=== PATIENT | female | born 1985 | race Caucasian/White ===

== ENCOUNTER 2017-04-21 05:10 | Inpatient (IN) | payer BC ==
--- NOTE | 2017-04-20 15:53 | PCM.LDHP ---
L&D History of Present Illness - General Date of Service: 04/21/17 Admit Problem/Dx: Admission Diagnosis/Problem Admission Diagnosis/Problem 04/20/17 16:08 Source of Information: Patient, Other History Limitations: Reports: No Limitations - History of Present Illness Introduction:: History of present illness: Patient is a 31-year-old 2 para 1001 white female here for repeat . Has a history of spherocytosis and gestational diabetes mellitus. GBS positive. 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 Last menstrual period definite on 07/20/17. Menarche age 12. Menses occur monthly every 28-32 days. Positive hCG on 08/18/16. Was not on control at conception. First resulted in a 7 lbs 7 oz boy named Jeniffer born via after 7 hours of labor at 40 weeks gestation on 10/31/12. Cord was wrapped around baby's neck. course: ALICIA 04/26/17 based on LMP of 07/20/17. First-trimester ultrasound showed viable SIUG with size equaling dates. 20-week ultrasound showed no abnormalities. Gestational diabetes controlled with diet and Glyburide. Fundal height growth has been appropriate. Diagnosed with spherocytosis during , which has been followed with hematology and monitored by CBCs. Received TDAP 02/07/17. Has had weekly reactive NSTs. Pre- weight was 147 lbs and current weight is 178, a gain of 31 lbs. Laboratory testing: O positive blood type with negative antibody screen. First trimester HGB at 11.5 and platelets at 258,000. Rubella immune and RPR nonreactive. Hepatitis B surface antigen and HIV testing negative. Chlamydia and gonorrhea both negative. Second trimester HGB at 10.8 and platelets at 251, 000. One hour GTT 132. Third trimester HGB at 11.7 and platelets at 247,000. Group B strep positive. EPDS Past medical history: 1. Spherocytosis 2. Gestational diabetes mellitus 3. Fibrocystic changes in breast Past surgical history: 1. Appendectomy 2. Achilles tendon 3. 4. Pap biopsy Allergies: 1. No known food or drug allergies Medications: 1. Glyburide 2.5 mg twice a day (GDM) 2. vitamins 3. Iron tablets Family history: Mother's family has spherocytosis. Mother alive and well, has anemia. Father alive and well, has gout. MGM from old age and had history of colon cancer. MGF alive and had prostate cancer 15 years ago. PGM and PGF from age related issues. Has three sisters and one brother alive and well. Social history: Lives in [place], [place]. to Bryan Forde. No alcohol, tobacco, or illicit drug use during . Review of systems: Skin: no rashes HEENT and back: no back or neck pain Respiratory: no shortness of breath or cough Cardiovascular: no chest pain Breasts: normal changes Abdomen: no pain Extremities: no swelling Physical exam: well-appearing, well-nourished, no acute distress Last clinic appt. BP 128/72, FHR 137 Skin: warm, dry, intact HEENT and back: no pain or tenderness to palpation Respiratory: clear to auscultation bilaterally Cardiovascular: normal S1 and S2, no murmurs, regular rate and rhythm Breasts: deferred Abdomen: protuberant with , no tenderness, fundal height 39 cm Extremities: no edema H&P Review of Systems - Review of Systems: Review Of Systems: See Below L&D Exam - Exam Exam: See Below - Problem List (1) 39 weeks gestation of SNOMED Code(s): 43477591 ICD Code: Z3A.39 - 39 WEEKS GESTATION OF Status: Acute Problem List Initiated/Reviewed/Updated: Yes Assessment/Plan Comment:: Assessment: 1. 31-year-old at 39 2/7 weeks gestation here for repeat 2. Gestational diabetes mellitus controlled with Glyburide and diet 3. Spherocytosis monitored by hematology and CBCs 4. GBS positive 5. Risks and benefits of procedure were discussed with patient including anesthesia, bleeding, blood clots, injury, infection, other. The patient understands the alternative of and wishes to proceed with repeat . Plan: 1. Repeat 2. Ancef 2 g IV 60 minutes before procedure 3. SCD's before surgery 4. Maintain IV Lactated Ringers with 20 units Pitocin bolus in PACU until C- section patient is transferred to OR.
[~2017-04-21 05:10] MED LIST: Citric Acid/Sodium Citrate Solution 30 ML Cup PO SCH; Metoclopramide 10 MG/2 ML SDV IVPUSH SCH; Sodium Chloride 0.9% 10 ML Syringe FLUSH PRN
[2017-04-21] MEDS ORDERED: ceFAZolin 2 GM in Premix Bag 1 BAG IV SCH (05:30)
[2017-04-21] MEDS: Lactated Ringers 1,000 ML IV SCH ×2 (05:50→06:30)
[2017-04-21] MEDS ORDERED: Bupivacaine 0.5% 30 ML SDV ONE (06:23)
[2017-04-21] MEDS ORDERED: ceFAZolin 1 GM Vial ONE (06:51)
[2017-04-21] MEDS ORDERED: Phenylephrine 1% 10 MG/ML SDV ONE (06:51)
[2017-04-21] MEDS ORDERED: Ketorolac 30 MG/ML SDV ONE (06:51)
[2017-04-21] MEDS ORDERED: Ondansetron 4 MG/2 ML SDV ONE (06:51)
[2017-04-21] MEDS ORDERED: Morphine PF 10 MG/10 ML SDV ONE (06:51)
[2017-04-21] MEDS ORDERED: Oxytocin 10 Units/1 ML SDV ONE (06:51)
[2017-04-21] MEDS ORDERED: FLU Vacc QS 2017-18 (6mos UP)/PF 60 MCG/0.5 ML Syringe IM ONE (07:00)
--- NOTE | 2017-04-21 07:00 | PCM.PREANE ---
Preanesthetic Assessment - Anesthesia/Transfusion/Family Hx Anesthesia History: Prior Anesthesia Without Reaction Transfusion History: No Prior Transfusion(s) Intubation History: Unknown - Review of Systems General: No Symptoms Pulmonary: No Symptoms Cardiovascular: No Symptoms Gastrointestinal: No Symptoms (GERD) Neurological: No Symptoms, Tingling (Bilateral CTS) Other: Reports: None (Spherocytosis), Diabetes (am BS=73) - Physical Assessment NPO Status Date: 04/20/17 NPO Status Time: 19:30 Pulse: 79 O2 Sat by Pulse Oximetry: 100 Respiratory Rate: 18 Blood Pressure: 117/94 Temperature: 36.6 C Vital Signs: Last Vital Signs Temp 36.6 C 04/21/17 06:00 Pulse 79 04/21/17 06:00 Resp 18 04/21/17 06:00 BP 117/94 H 04/21/17 06:00 Pulse Ox 100 04/21/17 06:00 Height: 1.63 m Weight: 81.556 kg ASA Class: 2 Mental Status: Alert & Oriented x3 Airway Class: Mallampati = 2 Dentition: Reports: Normal Dentition, Caries Thyro-Mental Finger Breadths: 3 Mouth Opening Finger Breadths: 3 ROM/Head Extension: Full Lungs: Clear to Auscultation, Normal Respiratory Effort Cardiovascular: Regular Rate, Regular Rhythm, No Murmurs - Lab Values: Laboratory Last Values POC Glucose 73 mg/dL (70-105) 04/21/17 06:22 Platelets= 238,000 - Allergies Allergies/Adverse Reactions: Allergies Allergy/AdvReac Type Severity Reaction Status Date / Time No Known Allergies Allergy Verified 04/21/17 06:26 - Anesthesia Plan Pre-Op Medication Ordered: None - Acknowledgements Anesthesia Type Planned: Spinal Pt an Appropriate Candidate for the Planned Anesthesia: Yes Alternatives and Risks of Anesthesia Discussed w Pt/Guardian: Yes Pt/Guardian Understands and Agrees with Anesthesia Plan: Yes 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: Endocrine/Metabolic History: Reports: Diabetes, Gestational Hematologic History: Reports: Other (See Below) Other Hematologic History: spherocytosis - Past Surgical History GI Surgical History: Reports: Appendectomy Female Surgical History: Reports: Section Musculoskeletal Surgical History: Reports: Other (See Below) Other Musculoskeletal Surgeries/Procedures:: achilles tendon repair - SUBSTANCE USE Smoking Status *Q: Former Smoker Tobacco Use Within Last Twelve Months: No Recreational Drug Use History: No - HOME MEDS Home Medications: Home Meds Ferrous Sulfate [Iron] 1 tab PO DAILY 04/21/17 [History] Vits #93/Iron Fum/FA [ Formula Tablet] 1 each PO DAILY [History] glyBURIDE/Metformin HCl [Glyburid-Metformin 1.25-250 mg] 2.5 mg PO BID 04/21/17 [History] - CURRENT (IN HOUSE) MEDS Current Meds: Current Medications Citric Acid/Sodium Citrate (Bicitra Solution) 30 ml PO .ONETIME KIRSTIN Cefazolin Sodium/Dextrose 2 gm (/ Premix) 50 mls @ 100 mls/hr IV .ONETIME KIRSTIN Lactated Ringer's (Ringers, Lactated) 1,000 mls @ 125 mls/hr IV ASDIRECTED KIRSTIN Oxytocin 20 unit/ Lactated (Ringer's) 1,002 mls @ 500 mls/hr IV TITRATE KIRSTIN Metoclopramide HCl (Reglan) 10 mg IVPUSH .ONETIME KIRSTIN Sodium Chloride (Saline Flush) 10 ml FLUSH ASDIRECTED PRN PRN Reason: Keep Vein Open Discontinued Medications Bupivacaine HCl (Marcaine 0.5%) Confirm Administered Dose 30 ml .ROUTE .STK-MED ONE Stop: 04/21/17 06:24 Cefazolin Sodium (Ancef) Confirm Administered Dose 2 gm .ROUTE .STK-MED ONE Stop: 04/21/17 06:52 Ketorolac Tromethamine (Toradol) Confirm Administered Dose 30 mg .ROUTE .STK- MED ONE Stop: 04/21/17 06:52 Morphine Sulfate (Duramorph Pf) Confirm Administered Dose 10 mg .ROUTE .STK-MED ONE Stop: 04/21/17 06:52 Ondansetron HCl (Zofran) Confirm Administered Dose 4 mg .ROUTE .STK-MED ONE Stop: 04/21/17 06:52 Oxytocin (Pitocin) Confirm Administered Dose 10 unit .ROUTE .STK-MED ONE Stop: 04/21/17 06:52 Phenylephrine HCl (Hoang-Synephrine) Confirm Administered Dose 10 mg .ROUTE .STK- MED ONE Stop: 04/21/17 06:52
[2017-04-21] MEDS ORDERED: Lidocaine 1% 2 ML ONE ×2 (08:00)
[2017-04-21] MEDS ORDERED: Meperidine PF 50 MG/ML Syringe IVPUSH PRN (08:01)
[2017-04-21] MEDS ORDERED: HYDROmorphone 0.5 MG/0.5 ML Syringe IVPUSH PRN (08:01)
[2017-04-21] MEDS ORDERED: diphenhydrAMINE 50 MG/ML SDV IVPUSH PRN ×2 (08:01→09:07)
[2017-04-21] MEDS ORDERED: Ondansetron 4 MG/2 ML SDV IVPUSH PRN (08:01)
[2017-04-21] MEDS ORDERED: fentaNYL 100 MCG/2 ML SDV IVPUSH PRN (08:01)
[2017-04-21] MEDS ORDERED: Phenylephrine 1 MG in Sodium Chloride 0.9% 10 ML IV SCH (08:15)
--- NOTE | 2017-04-21 08:32 | PCM.POSTAN ---
POST ANESTHESIA ASSESSMENT - MENTAL STATUS Mental Status: Alert - VITAL SIGNS Pulse Rate: 79 SaO2: 100 Resp Rate: 19 Blood Pressure: 105/73 Temperature: 36.4 C - RESPIRATORY Respiratory Status: Respiratory Rate WNL, Airway Patent, O2 Saturation Stable - CARDIOVASCULAR CV Status: Pulse Rate WNL, Blood Pressure Stable - GASTROINTESTINAL GI Status: No Symptoms - POST OP HYDRATION Hydration Status: Adequate & Stable
--- NOTE | 2017-04-21 08:34 | PCM.OPNOTE ---
- General Post-Op/Procedure Note Date of Surgery/Procedure: 04/21/17 Operative Procedure(s): repeat lower uterine segment transverse section through Pfannenstiel skin incision Findings: baby is vertex presentation. There was moderate scarring in the subcutaneous area. Patient's amniotic fluid was clear. Her uterine segment was approximately 2-3 mm thick. Uterus tubes and ovaries otherwise were consistent with a normal term . Pre Op Diagnosis: term intrauterine , history of previous section, history of gestational diabetes, desire for repeat section Post-Op Diagnosis: same with delivery of a viable, tolentino, female infant with Apgars of 9 and 9 and a weight 8 lbs. 3 oz. at 0759 hrs. on 04/21/2017. Anesthesia Technique: Spinal Other Anesthesia Type: Marcaine 0.5%20 mL locally Primary Surgeon: Lev Caballero Secondary Surgeon: Jayro Diehl Anesthesia Provider: Caroline Flaherty Open Hearth Melter: Osorio Escobedo Open Hearth Melter: Kaci Barney Output, Urine Amount: 1,100 (Crystalloid) EBL in mLs: 500 Drain/Tube Comments:: indwelling bladder catheter Complications: None Condition: Good Free Text/Narrative:: surgery duration: 20 minutes Procedure: Patient was transferred the room and placed in a sitting position. After confirmation of adequate anesthesia patient was placed in a supine position with a wedge under her right side to facilitate left lateral positioning. The patient was prepped and draped in usual fashion after Perkins catheter was already placed . The anesthetic was checked and found to be adequate. The Pfannenstiel skin incision was then made carried down to skin subcutaneous and fascial layers. The fascia was then undermined superiorly and inferiorly to allow for adequate operating room the recti muscles midline and preperitoneal fat was bluntly dissected. Peritoneal cavity was entered longitudinally. The vesicouterine peritoneum was then incised transversely and bladder flap was developed. Myometrium was incised transversely to the level of the amniotic sac. This incision was extended bilaterally in a blunt fashion. The amniotic sac was then ruptured resulting clear amniotic fluid. A hand is placed in the low uterine segment and the baby' s head was brought forth through the incision. The baby was completely delivered using fundal pressure in a routine fashion. The nose and mouth were bulb suctioned. Baby's cord was clamped x2 cut and baby was handed off to attending roof designer Dr Fermin. Placenta was expressed after cord blood was obtained. Uterus was then exteriorized to allow for easier closure. The cervix was assessed and found to be dilated adequately to allow egress of blood. The uterus was closed in 2 layers. The first layer a running locked suture of 0 Monocryl, the second layer a running locked vertical mattress suture of 0 Monocryl. [id number] suture was placed at the left incision to control 1 bleeder. Hemostasis confirmed at this time. Sponge instrument needle counts are correct. The uterus was returned to the abdominal cavity and lateral gutters were cleared of blood. Once again sponge needle counts are correct. The anterior abdominal wall was closed with a #1 PDS suture from angle to angle. The subcutaneous area was found to be free of any bleeders. Skin was closed with a running subcuticular stitch of 3-0 Monocryl in a vertical mattress suture fashion using a Lance needle. Prineo mesh/glue was then applied to further approximate the incision. It should be noted that patient received 2 g of Ancef preoperatively for infection prophylaxis and had Pitocin infused after delivery of the placenta to facilitate uterine contraction. She also had sequential compression stockings in place for DVT prophylaxis. Patient was discharged from the operating room in satisfactory condition.
[2017-04-21] MEDS ORDERED: Dextrose 5%-Lactated Ringers 1,000 ML IV SCH (09:07)
[2017-04-21] MEDS ORDERED: Ondansetron 4 MG/2 ML SDV IV PRN (09:07)
[2017-04-21] MEDS ORDERED: Docusate Sodium 100 MG Cap PO PRN (09:07)
[2017-04-21] MEDS ORDERED: Naloxone 0.4 MG/ML SDV IVPUSH PRN (09:07)
[2017-04-21] MEDS ORDERED: Lanolin 100% Cream 7 GM Tube TOP PRN (09:07)
[2017-04-21] MEDS ORDERED: ePHEDrine 50 MG/ML SDV IVPUSH PRN (09:07)
[2017-04-21] MEDS: Prenatal Multivitamin with Calcium/Folic Acid/Iron Tab PO SCH (09:40)
[2017-04-21] MEDS: Simethicone 80 MG Tab.Chew PO SCH ×4 (09:40→22:55)
[2017-04-21] MEDS: Acetaminophen/oxyCODONE 325-5 MG Tab PO PRN ×2 (13:44→20:30)
[2017-04-21] MEDS: Ibuprofen 600 MG Tab PO PRN ×2 (16:07→22:58)
[2017-04-22] MEDS: Acetaminophen/oxyCODONE 325-5 MG Tab PO PRN ×5 (00:32→20:38)
[2017-04-22] MEDS: Ibuprofen 600 MG Tab PO PRN ×2 (09:34→18:25)
[2017-04-22] MEDS: Prenatal Multivitamin with Calcium/Folic Acid/Iron Tab PO SCH (09:34)
[2017-04-22] MEDS: Simethicone 80 MG Tab.Chew PO SCH ×4 (09:34→21:30)
--- NOTE | 2017-04-22 10:13 | PCM.SN ---
- Free Text/Narrative Note: The patient is a 31-year-old 2 now para 2002 white female who is on postoperative day 1. She is doing very well. Pain is well-controlled with ibuprofen and Percocet. Her lochia is minimal. She is ambulating well. She is voiding without concerns. Nursing is going well also. Her vital signs are stable. Patient is afebrile. Lungs are clear with good breath sounds in all lung wilder. Cardiovascular exam shows regular and rhythm without murmurs. Abdomen is flat, soft, nontender, uterus at umbilicus -3 cm, firm. Nontender. Incision appears to intact without evidence of seroma, hematoma or abscess. Extremities show no significant edema. Hemoglobin is 10.8, hematocrit 31.2, white blood count is 12.09, platelets are 217,000. Assessment/plan: Postoperative day one-normal recovery. Plan increase in diet, activity and discontinue SCDs, IV and input and output.
[2017-04-23] MEDS: Acetaminophen/oxyCODONE 325-5 MG Tab PO PRN ×3 (02:40→11:11)
[2017-04-23] MEDS: Ibuprofen 600 MG Tab PO PRN (04:55)
[2017-04-23] MEDS: Prenatal Multivitamin with Calcium/Folic Acid/Iron Tab PO SCH (08:25)
[2017-04-23] MEDS: Simethicone 80 MG Tab.Chew PO SCH (08:25)
--- NOTE | 2017-04-23 08:38 | PCM48HPAN ---
Post Anesthesia Note - EVALUATION WITHIN 48HRS OF ANESTHETIC Vital Signs in Normal Range: Yes Patient Participated in Evaluation: Yes Respiratory Function Stable: Yes Airway Patent: Yes Cardiovascular Function Stable: Yes Hydration Status Stable: Yes Pain Control Satisfactory: Yes Nausea and Vomiting Control Satisfactory: Yes Mental Status Recovered: Yes
--- NOTE | 2017-04-23 09:21 | PCM.DCSUM1 ---
Discharge Summary - Hospital Course Free Text/Narrative:: 39 week intrauterine , history of previous section with desire for repeat section. Patient is admitted for repeat on 04/21/2017. Please see admission history and physical. section was performed and resulted in a delivery of a 8 lbs. 3 oz. female infant with Apgars of 9 and 9 at 0759 hrs. on 04/21/2017. patient was done well. She Gavin well, nursing without problems and has minimal lochia. Her follow-up CBC is within normal limits for period. Patient is desiring to go home. - Discharge Data Discharge Date: 04/23/17 Discharge Disposition: Home, Self-Care 01 Condition: Good - Patient Summary/Data Operative Procedure(s) Performed: repeat lower uterine segment transverse section through Pfannenstiel skin incision - Patient Instructions Diet: Regular Diet as Tolerated (Nursing diet was increased calcium and calories as directed.) Activity: As Tolerated (No lifting greater than 15 pounds or driving a car 1 week. No intercourse or tampons until bleeding resolves.) Driving: Do Not Drive Wound/Incision Care: Keep Operative Site/Wound Site Clean and Dry Notify Provider of: Fever, Increased Pain, Swelling and Redness, Drainage, Nausea and/or Vomiting - Discharge Plan Home Medications: Home Meds Ferrous Sulfate [Iron] 1 tab PO DAILY 04/21/17 [History] Vits #93/Iron Fum/FA [ Formula Tablet] 1 each PO DAILY [History] glyBURIDE/Metformin HCl [Glyburid-Metformin 1.25-250 mg] 2.5 mg PO BID 04/21/17 [History] Acetaminophen/oxyCODONE [Percocet 325-5 MG] 2 tab PO Q4H PRN #30 tablet [Rx] Ibuprofen [IJD: Ibuprofen] 600 mg PO Q6H PRN #30 tablet 04/23/17 [Rx] Referrals: Lev Caballero MD [Primary Care Provider] - (Return to clinic-Dr. Caballero-[facility]-2 weeks.) - Discharge Summary/Plan Comment DC Time >30 min.: No Discharge Summary/Plan Comment: Discharge instructions: 1. Discharge home 2. Regular, high fiber, nursing diet with increased calcium and calories as directed 3. Activity and follow-up discussed in detail with patient. 4. Precautions given concern increased pain, bleeding, temperature, signs/ symptoms of DVT/PE 5. Educations per home medication was printed, discussed with him given to the patient 6. Return to clinic-Dr. Caballero-[facility] -[place] -2 weeks. Diagnosis: 39 week intrauterine -delivered by repeat section. Condition: Good - Patient Data Vitals - Most Recent: Last Vital Signs Temp 36.7 C 04/23/17 04:00 Pulse 78 04/23/17 04:50 Resp 18 04/23/17 04:00 BP 114/63 04/23/17 04:50 Pulse Ox 98 04/23/17 04:50 Weight - Most Recent: 81.556 kg I&O - Last 24 hours: Intake & Output 04/22/17 04/23/17 04/23/17 22:59 06:59 14:59 Intake Total 0 Balance 0 Med Orders - Current: Current Medications Diphenhydramine HCl (Benadryl) 25 mg IVPUSH Q6H PRN PRN Reason: Itching or Nausea Docusate Sodium (Colace) 100 mg PO Q12H PRN PRN Reason: Constipation Last Admin: 04/22/17 21:05 Dose: 100 mg Emollient Ointment (Lansinoh Hpa) 0 gm TOP ASDIRECTED PRN PRN Reason: Sore Nipples Ephedrine Sulfate (Ephedrine Sulfate) 5 mg IVPUSH SEECOMMENT PRN PRN Reason: Other Ibuprofen (Motrin) 600 mg PO Q6H PRN PRN Reason: mild pain or fever Last Admin: 04/23/17 04:55 Dose: 600 mg Naloxone HCl (Narcan) 0.1 mg IVPUSH SEECOMMENT PRN PRN Reason: Respiratory Depression Ondansetron HCl (Zofran) 4 mg IV Q4H PRN PRN Reason: Nausea/Vomiting Oxycodone/Acetaminophen (Percocet 325-5 Mg) 2 tab PO Q4H PRN PRN Reason: Pain (moderate 4-6) Last Admin: 04/23/17 07:01 Dose: 2 tab Prenat Multivit/Automotive Tire Technician/Iron/Folic Ac ( Plus Iron) 1 each PO DAILY KIRSTIN Last Admin: 04/23/17 08:25 Dose: 1 each Simethicone (Simethicone) 80 mg PO PCBED [facility] Last Admin: 04/23/17 08:25 Dose: 80 mg Discontinued Medications Bupivacaine HCl (Marcaine 0.5%) Confirm Administered Dose 30 ml .ROUTE .[facility] ONE Stop: 04/21/17 06:24 Last Admin: 04/21/17 07:55 Dose: 20 ml Cefazolin Sodium (Ancef) Confirm Administered Dose 2 gm .ROUTE .[facility] ONE Stop: 04/21/17 06:52 Citric Acid/Sodium Citrate (Bicitra Solution) 30 ml PO .ONETIME [facility] Last Admin: 04/21/17 07:00 Dose: 30 ml Diphenhydramine HCl (Benadryl) 25 mg IVPUSH Q6H PRN PRN Reason: pruritis Stop: 04/21/17 10:00 Fentanyl (Sublimaze) 50 mcg IVPUSH Q5M PRN PRN Reason: Pain Stop: 04/21/17 10:00 Hydromorphone HCl (Dilaudid) 0.5 mg IVPUSH Q15M PRN PRN Reason: severe pain Stop: 04/21/17 10:00 Cefazolin Sodium/Dextrose 2 gm (/ Premix) 50 mls @ 100 mls/hr IV .ONETIME [facility] Lactated Ringer's (Ringers, Lactated) 1,000 mls @ 125 mls/hr IV ASDIRECTED [facility] Last Admin: 04/21/17 06:30 Dose: 999 mls/hr Oxytocin 20 unit/ Lactated (Ringer's) 1,002 mls @ 500 mls/hr IV TITRATE [facility] Lidocaine HCl (Xylocaine-Mpf 1%) Confirm Administered Dose 2 mls @ as directed .ROUTE .[facility] ONE Stop: 04/21/17 08:01 Lidocaine HCl (Xylocaine-Mpf 1%) Confirm Administered Dose 2 mls @ as directed .ROUTE .[facility] ONE Stop: 04/21/17 08:01 Phenylephrine HCl 1 mg/ Sodium (Chloride) 10.1 mls @ 1 mls/sec IV TITRATE [facility] PRN Reason: Protocol Stop: 04/21/17 10:00 Dextrose/Lactated Ringer's (Dextrose 5%-Lactated Ringers) 1,000 mls @ 125 mls/ hr IV ASDIRECTED [facility] Stop: 04/21/17 17:06 Last Admin: 04/21/17 12:09 Dose: 125 mls/hr Ketorolac Tromethamine (Toradol) Confirm Administered Dose 30 mg .ROUTE .STK- MED ONE Stop: 04/21/17 06:52 Meperidine HCl (Demerol) 12.5 mg IVPUSH ONETIME PRN PRN Reason: shivering Stop: 04/21/17 10:00 Last Admin: 04/21/17 08:33 Dose: 12.5 mg Metoclopramide HCl (Reglan) 10 mg IVPUSH .ONETIME KIRSTIN Last Admin: 04/21/17 06:50 Dose: 10 mg Morphine Sulfate (Duramorph Pf) Confirm Administered Dose 10 mg .ROUTE .STK-MED ONE Stop: 04/21/17 06:52 Ondansetron HCl (Zofran) Confirm Administered Dose 4 mg .ROUTE .STK-MED ONE Stop: 04/21/17 06:52 Ondansetron HCl (Zofran) 4 mg IVPUSH ONETIME PRN PRN Reason: Nausea/Vomiting Stop: 04/21/17 10:00 Oxytocin (Pitocin) Confirm Administered Dose 10 unit .ROUTE .STK-MED ONE Stop: 04/21/17 06:52 Phenylephrine HCl (Hoang-Synephrine) Confirm Administered Dose 10 mg .ROUTE .STK- MED ONE Stop: 04/21/17 06:52 Sodium Chloride (Saline Flush) 10 ml FLUSH ASDIRECTED PRN PRN Reason: Keep Vein Open *Q Meaningful Use (DIS) - VTE *Q VTE Criteria *Q: - Stroke *Q Stroke Criteria *Q: - AMI *Q AMI Criteria *Q:
[2017-04-23 11:34] VITALS: BP 116/60
== END 2017-04-23 11:15 | disposition home or self-care (01) | DRG 540 ==
LOC: JD.OB 05:10
PROVIDERS: ADMIT Obstetrics & Gynecology; ATTEND Obstetrics & Gynecology
PROC: 10D00Z1 Extraction of Products of Conception, Low, Open Approach (ICD-10-PCS; principal; 2017-04-21)
DX: O24.425 Gestational diabetes mellitus in childbirth, controlled by oral hypoglycemic drugs (principal); Z3A.39 39 weeks gestation of pregnancy; Z37.0 Single live birth; O75.89 Other specified complications of labor and delivery; D58.0 Hereditary spherocytosis; O99.824 Streptococcus B carrier state complicating childbirth; O34.211 Maternal care for low transverse scar from previous cesarean delivery; N85.8 Other specified noninflammatory disorders of uterus
CPT/HCPCS: 01961; 36415; 82962; 85025; 90471; 90686; A9270-GY; J0690; J1885; J2175; J2270; J2370; J2405; J2590; J2765; J7042; J7120

== ENCOUNTER 2019-12-20 05:33 | Inpatient (IN) | payer BC ==
--- NOTE | 2019-12-17 13:50 | PCM.LDHP ---
L&D History of Present Illness - General Date of Service: 12/17/19 Admit Problem/Dx: Admission Diagnosis/Problem Admission Diagnosis/Problem 12/17/19 13:39 Naomy is a 34-year-old 3 para 2001 white female who will be admitted on 12/20/2019 at 39-1/7 weeks gestational age with an ALICIA of 12/26/2019 for elective repeat section. Source of Information: Patient History Limitations: Reports: No Limitations - History of Present Illness Introduction:: Naomy is a 34-year-old 3 para 2001 white female who will be admitted on 12/20/2019 at 39-1/7 weeks gestational age with an ALICIA of 12/26/2019 for elective repeat section.The procedure, risks, benefits, alternatives of care and follow-up are all discussed in detail with the patient. She appears to understand, has signed a consent and wishes to proceed. BENCH EXAMINER history: Naomy is a 3 para 2001 female. She has an ALICIA of is based upon an early ultrasound done at 10 and 57 weeks gestational age and supported by a second ultrasound done on 07/31/2019. She has had a previous section 2 done for nonreassuring heart tones and an elective repeat with the second one. Patient had menarche at age 12. Cycles every month.'s duration 5-7 days. She is not using any control at the time conception. LMP was 03/15/2019. Obstetric history includes the followin. Male infant born 10/31/2012 at 40 weeks gestational age after 7 hours of labor. 7 lbs. 7 oz. delivered by for nonreassuring heart tones. Had an epidural for analgesia/anesthesia. She delivered a [facility] I Kylee. Child 's name is Jeniffer. 2. Female infant born 04/21/2017 at 39 weeks gestational age. This is elective repeat section delivery of an 8 lbs. 7 oz. baby. Spinal anesthetic for analgesia anesthesia. She delivered at [facility] in [place]. Child's name is Luz Marina. course: Patient was seen for her first visit on 06/04/2019 at 10-5/7 weeks gestational age. She is seen on a very regular basis throughout the course of . Her weight increased from 150.2-171.6 pounds. Her vital signs remained stable throughout the course and her fundal height growth was appropriate. Patient had Screen which was negative. She had a 1 hour GTT which is elevated and a 3 or GTT which was normal. She did however do blood sugars throughout the and these remain normal with dietary control. Her [place] depression screening score on 08/08/2019 was 6/ 30. The patient plans to pump breast milk and bottle feed. She has a previous history of gestational diabetes with last 2 pregnancies. Naomy had her flu shot on 04/30/2019. Her Tdap was given on 10/02/2019. She is rubella immune. Hepatitis B vaccinations done on November 1998. TD given 06/19/1998 laboratory testing: Let is O+ with a negative and right screen. First hemoglobin was 12.6 g/dL and platelets were 306,000. She is rubella immune. RPR is nonreactive. Urine culture is negative. Hepatitis B surface antigen was negative. HIV assay was negative. Chlamydia and gonorrhea tests were both negative. Second trimester labs showed a hemoglobin that was low at 10.8 g/dL. Her platelets are 253,000. Her 1 hour GTT was 147. Her 3 hour glucose tolerance test was normal with the following values: Fasting blood sugar 81, 1 hour blood sugar 158, 2 hour blood sugar 81, 3 hour blood sugar 56. RPR done on 09/19/2019 was nonreactive. Group B strep screen was negative. Allergies: None Medications: 1. vitamins 1 daily 2. Ferrous sulfate 325 mg by mouth daily 3. Calcium tablets 600 mg per day 4. Omeprazole 20 mg delayed release disintegrating tablet used when necessary for nausea Past medical history: 1. Spherocytosiscongenital 2. Abnormal Pap smear 12 years agonormal since 3. History of gestational diabetes with first 2 pregnancies 4. Bacterial pneumonia February 2019 Past surgical history: 1. 2 2. Appendectomy 1997 3. Achilles tendon repair in 1991 Family history: Mother's family is spherocytosis. One son age for alive and well. 3 sisters ages 36, 33 and 23 alive and well. One brother age 39 alive and well. Mother age 66 alive and well with the exception of anemia. Father age 60 alive and well with the exception of gout history. Maternal grandmother at age 82 with age related problems and prior history of colon cancer. Maternal grandfather age 92 alive and with history of prostate cancer 15 years ago otherwise well. Paternal grandmother at age 97 from age-related issues. Paternal grandfather at age 97 from age-related issues. Mother with diagnosis of breast cancer now in remission. Social history: Patient is . 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 She is a college graduate. She lives in [facility] with her [place]. She does not use any significant most alcohol, drugs or tobacco. Review of systems: In general patient has no complaints. AB has been active. No concerns expressed. Skin: Negative Lungs: No infectious symptoms or shortness of breath Cardiovascular: No chest pain or exercise intolerance Breasts: No lumps, changes in size, pain, dimpling, discharge or axillary or supraclavicular concerns. GI: Negative : Changes associated with . Musculoskeletal: Negative Neurological: Negative In general the patient is well-developed, well-nourished, pleasant female of stated age in no acute distress. On last evaluation in clinic on 12/17/2019 blood pressure is 125/70. Weight was 171.6 with pregravid weight of 150.2 pounds. Height is 5 feet 4 inches. Pregravid body mass index is 25.4. heart rate was 135 bpm. Skin is warm dry without lesions. HEENT, neck and back within normal limits. Lungs are clear with good breath sounds in all lung wilder. Cardiovascular exam shows regular and rhythm without murmurs. Breast exam deferred as it was normal at first visit Abdomen is gravid with fundal height of 38.5 cm. Baby in vertex presentation.. Genital deferred per patient request. Extremities and neurological exam are grossly within normal limits. - Related Data Allergies/Adverse Reactions: Allergies Allergy/AdvReac Type Severity Reaction Status Date / Time No Known Allergies Allergy Verified 04/21/17 06:26 Home Medications: Home Meds Ferrous Sulfate [Iron] 1 tab PO DAILY 04/21/17 [History] Vits #93/Iron Fum/FA [ Formula Tablet] 1 each PO DAILY [History] glyBURIDE/Metformin HCl [Glyburid-Metformin 1.25-250 mg] 2.5 mg PO BID 04/21/17 [History] Acetaminophen/oxyCODONE [Percocet 325-5 MG] 2 tab PO Q4H PRN #30 tablet [Rx] Ibuprofen [IJD: Ibuprofen] 600 mg PO Q6H PRN #30 tablet 04/23/17 [Rx] Past Medical History BENCH EXAMINER History: Reports: Endocrine/Metabolic History: Reports: Diabetes, Gestational Hematologic History: Reports: Other (See Below) Other Hematologic History: spherocytosis - Past Surgical History GI Surgical History: Reports: Appendectomy Female Surgical History: Reports: Section Musculoskeletal Surgical History: Reports: Other (See Below) Other Musculoskeletal Surgeries/Procedures:: achilles tendon repair Social & Family History - Caffeine Use Caffeine Use: Reports: Coffee H&P Review of Systems - Review of Systems: Review Of Systems: See Below L&D Exam - Exam Exam: See Below Problem List Initiated/Reviewed/Updated: Yes Assessment/Plan Comment:: 1. 39-1/7 week intrauterine , history of previous section 2 with desire for repeat section. 2. Group B strep negative 3. Patient plans to Pump and bottle feed breast milk 4. Tdap and flu immunization given during 5. History of normal three-hour GTT but patient opted blood sugars throughout the and these have returned normal with dietary control. Plan: 1. Repeat lower uterine segment transverse section through Pfannenstiel skin incision under spinal block. Procedure is scheduled for 2019 at 0800 hrs. C2, risks, benefits, alternatives of care and follow-up were discussed in detail patient. She appears to understand, and signed consent and wishes to proceed. 2. DVT prophylaxis with SCDs 3. Infection prophylaxis with Ancef 2 g IV preop 4. Preoperative lab testing testing to consist of a CBC, urinalysis, type and screen, RPR.
[~2019-12-20 05:33] MED LIST changes: +Citric Acid/Sodium Citrate Solution 30 ML Cup PO ONE; -Citric Acid/Sodium Citrate Solution 30 ML Cup PO SCH; +Lactated Ringers 1,000 ML IV SCH; +Metoclopramide 10 MG/2 ML SDV IVPUSH ONE; -Metoclopramide 10 MG/2 ML SDV IVPUSH SCH; +Oxytocin/Lactated Ringers 20 UNIT/1,000 ML BAG IV SCH
[2019-12-20] MEDS: Lactated Ringers 1,000 ML IV SCH ×2 (05:56→06:30)
[2019-12-20] MEDS ORDERED: Citric Acid/Sodium Citrate Solution 30 ML Cup PO ONE (06:00)
[2019-12-20] MEDS ORDERED: Metoclopramide 10 MG/2 ML SDV IVPUSH ONE (06:00)
[2019-12-20] MEDS ORDERED: Oxytocin/Lactated Ringers 20 UNIT/1,000 ML BAG IV SCH (06:00)
[2019-12-20] MEDS ORDERED: Sodium Chloride 0.9% 10 ML Syringe FLUSH PRN ×2 (06:00→07:05)
[2019-12-20] MEDS ORDERED: ceFAZolin 2 GM in Premix Bag 1 BAG IV ONE (06:00)
[2019-12-20] MEDS ORDERED: Bupivacaine 0.5% 30 ML SDV ONE (07:02)
[2019-12-20] MEDS ORDERED: Ondansetron 4 MG/2 ML SDV IVPUSH PRN (07:05)
[2019-12-20] MEDS ORDERED: fentaNYL 100 MCG/2 ML SDV IVPUSH PRN (07:05)
[2019-12-20] MEDS ORDERED: diphenhydrAMINE 50 MG/ML SDV IVPUSH PRN ×2 (07:05→09:13)
[2019-12-20] MEDS ORDERED: Lidocaine 1%/Sod Bicarbonate in NS 8.4% 1 ML Syringe IDERM PRN (07:05)
[2019-12-20] MEDS ORDERED: Famotidine 20 MG/2 ML SDV IVPUSH ONE (07:05)
[2019-12-20] MEDS ORDERED: Oxytocin 10 Units/1 ML SDV ONE ×2 (07:09→08:27)
[2019-12-20] MEDS ORDERED: Morphine PF 1 MG/ML Amp ONE (07:10)
[2019-12-20] MEDS ORDERED: fentaNYL 100 MCG/2 ML SDV ONE (07:11)
[2019-12-20] MEDS ORDERED: Lactated Ringers 1,000 ML IV SCH (07:15)
[2019-12-20] MEDS ORDERED: ceFAZolin 1 GM Vial ONE (07:36)
[2019-12-20] MEDS ORDERED: Ketorolac 30 MG/ML SDV ONE (07:36)
--- NOTE | 2019-12-20 08:16 | PCM.PREANE ---
Preanesthetic Assessment - Procedure Proposed Procedure: Repeat - Anesthesia/Transfusion/Family Hx Anesthesia History: Prior Anesthesia Without Reaction Family History of Anesthesia Reaction: No Transfusion History: No Prior Transfusion(s) Intubation History: Unknown - Review of Systems General: No Symptoms Pulmonary: No Symptoms Cardiovascular: No Symptoms Gastrointestinal: No Symptoms Neurological: No Symptoms Other: Reports: None - Physical Assessment NPO Status Date: 12/19/19 NPO Status Time: 03:00 Vital Signs: Last Vital Signs Temp 36.4 C 12/20/19 05:48 Pulse 94 12/20/19 05:48 Resp 16 12/20/19 05:48 BP 121/77 12/20/19 05:48 Pulse Ox 99 12/20/19 05:48 Height: 5 ft 4 in Weight: 77.337 kg ASA Class: 1 Mental Status: Alert & Oriented x3 Airway Class: Mallampati = 1 Dentition: Reports: Normal Dentition Thyro-Mental Finger Breadths: 3 Mouth Opening Finger Breadths: 3 ROM/Head Extension: Full Lungs: Clear to Auscultation, Normal Respiratory Effort Cardiovascular: Regular Rate, Regular Rhythm - Lab Values: Laboratory Last Values WBC 13.17 K/mm3 (3.98-10.04) H 12/20/19 05:47 RBC 3.74 M/mm3 (3.98-5.22) L 12/20/19 05:47 Hgb 12.4 gm/dl (11.2-15.7) D 12/20/19 05:47 Hct 34.9 % (34.1-44.9) 12/20/19 05:47 MCV 93.3 fl (79.4-94.8) 12/20/19 05:47 MCH 33.2 pg (25.6-32.2) H 12/20/19 05:47 MCHC 35.5 g/dl (32.2-35.5) 12/20/19 05:47 RDW Std Deviation 54.4 fL (36.4-46.3) H 12/20/19 05:47 Plt Count 242 K/mm3 (182-369) 12/20/19 05:47 MPV 10.4 fl (9.4-12.3) 12/20/19 05:47 Neut % (Auto) 76.2 % (34.0-71.1) H 12/20/19 05:47 Lymph % (Auto) 12.6 % (19.3-51.7) L 12/20/19 05:47 [place] % (Auto) 5.3 % (4.7-12.5) 12/20/19 05:47 Eos % (Auto) 2.9 (0.7-5.8) 12/20/19 05:47 Baso % (Auto) 0.5 % (0.1-1.2) 12/20/19 05:47 Neut # (Auto) 10.03 K/mm3 (1.56-6.13) H 12/20/19 05:47 Lymph # (Auto) 1.66 K/mm3 (1.18-3.74) 12/20/19 05:47 [place] # (Auto) 0.70 K/mm3 (0.24-0.36) H 12/20/19 05:47 Eos # (Auto) 0.38 K/mm3 (0.04-0.36) H 12/20/19 05:47 Baso # (Auto) 0.07 K/mm3 (0.01-0.08) 12/20/19 05:47 Manual Slide Review Abnormal smear 12/20/19 05:47 - Allergies Allergies/Adverse Reactions: Allergies Allergy/AdvReac Type Severity Reaction Status Date / Time No Known Allergies Allergy Verified 12/18/19 10:04 - Blood Blood Available: Yes Product(s) Available: PRBC (No concerns at this time) - Anesthesia Plan Pre-Op Medication Ordered: Antacids - Acknowledgements Anesthesia Type Planned: Spinal, MAC Pt an Appropriate Candidate for the Planned Anesthesia: Yes Alternatives and Risks of Anesthesia Discussed w Pt/Guardian: Yes Pt/Guardian Understands and Agrees with Anesthesia Plan: Yes PreAnesthesia Questionnaire UNDERGRADUATE INTERN History: Reports: Other OB/BYN History: C/S x2 (2012,2016) Endocrine/Metabolic History: Reports: Diabetes, Gestational Hematologic History: Reports: Other (See Below) Other Hematologic History: spherocytosis Dermatologic History: Reports: Other (See Below) Other Dermatologic History: current sunburn to neck and arms - Past Surgical History GI Surgical History: Reports: Appendectomy Female Surgical History: Reports: Section Other Endocrine Surgeries/Procedures: Hx of Gestational DM with First 2 pregnancies. Current boarderline, but able to keep glucose WNL with diet and exercise. Musculoskeletal Surgical History: Reports: Other (See Below) Other Musculoskeletal Surgeries/Procedures:: achilles tendon repair - SUBSTANCE USE Smoking Status *Q: Never Smoker Second Hand Smoke Exposure: No Recreational Drug Use History: No - HOME MEDS Home Medications: Home Meds Ferrous Sulfate [Iron] 1 tab PO DAILY 04/21/17 [History] Vits #93/Iron Fum/FA [ Formula Tablet] 1 each PO DAILY [History] Calcium Carbonate [Calcium] 500 mg PO DAILY 12/18/19 [History] Folic Acid 1 mg PO 12/20/19 [History] - CURRENT (IN HOUSE) MEDS Current Meds: Current Medications Diphenhydramine HCl (Benadryl) 25 mg IVPUSH Q6H PRN PRN Reason: Pruritis Fentanyl (Sublimaze) 50 mcg IVPUSH Q5M PRN PRN Reason: Pain Lactated Ringer's (Ringers, Lactated) 1,000 mls @ 125 mls/hr IV ASDIRECTED KIRSTIN Last Admin: 12/20/19 06:30 Dose: 125 mls/hr Oxytocin/Lactated Ringer's (Pitocin In Lr 20 Units/1,000 Ml) 20 unit in 1,000 mls @ 500 mls/hr IV TITRATE KIRSTIN; Protocol Lactated Ringer's (Ringers, Lactated) 1,000 mls @ 125 mls/hr IV ASDIRECTED KIRSTIN Lidocaine/Sodium Bicarbonate (Buffered Lidocaine 1% In Ns 8.4%) 0.25 ml IDERM ONETIME PRN PRN Reason: Prior to IV Start Ondansetron HCl (Zofran) 4 mg IVPUSH ONETIME PRN PRN Reason: Nausea/Vomiting Sodium Chloride (Saline Flush) 10 ml FLUSH ASDIRECTED PRN PRN Reason: Keep Vein Open Sodium Chloride (Saline Flush) 10 ml FLUSH ASDIRECTED PRN PRN Reason: Keep Vein Open Discontinued Medications Bupivacaine HCl (Marcaine 0.5%) Confirm Administered Dose 30 ml .ROUTE .STK-MED ONE Stop: 12/20/19 07:03 Cefazolin Sodium (Ancef) Confirm Administered Dose 2 gm .ROUTE .STK-MED ONE Stop: 12/20/19 07:37 Citric Acid/Sodium Citrate (Bicitra Solution) 30 ml PO ONETIME ONE Stop: 12/20/19 06:01 Last Admin: 12/20/19 06:57 Dose: 30 ml Famotidine (Pepcid) 20 mg IVPUSH ONETIME ONE Stop: 12/20/19 07:06 Fentanyl (Sublimaze) Confirm Administered Dose 100 mcg .ROUTE .STK-MED ONE Stop: 12/20/19 07:12 Cefazolin Sodium/Dextrose 2 gm (/ Premix) 50 mls @ 100 mls/hr IV ONETIME ONE Stop: 12/20/19 06:29 Ketorolac Tromethamine (Toradol) Confirm Administered Dose 30 mg .ROUTE .STK- MED ONE Stop: 12/20/19 07:37 Metoclopramide HCl (Reglan) 10 mg IVPUSH ONETIME ONE Stop: 12/20/19 06:01 Last Admin: 12/20/19 06:58 Dose: 10 mg Morphine Sulfate (Duramorph Pf) Confirm Administered Dose 1 mg .ROUTE .STK-MED ONE Stop: 12/20/19 07:11 Oxytocin (Pitocin) Confirm Administered Dose 20 unit .ROUTE .STK-MED ONE Stop: 12/20/19 07:10
--- NOTE | 2019-12-20 08:47 | PCM.POSTAN ---
POST ANESTHESIA ASSESSMENT - MENTAL STATUS Mental Status: Alert, Oriented - VITAL SIGNS Vital Signs: Last Vital Signs Temp 36.4 C 12/20/19 05:48 Pulse 94 12/20/19 05:48 Resp 16 12/20/19 05:48 BP 121/77 12/20/19 05:48 Pulse Ox 99 12/20/19 05:48 - RESPIRATORY Respiratory Status: Respiratory Rate WNL, Airway Patent, O2 Saturation Stable - CARDIOVASCULAR CV Status: Pulse Rate WNL, Blood Pressure Stable - GASTROINTESTINAL GI Status: No Symptoms - PAIN Pain Score: 0 - POST OP HYDRATION Hydration Status: Adequate & Stable - OBSERVATIONS Free Text/Narrative:: Routine spinal/mac anesthesia. PRN itching Nubain order placed by RN in PACU. No other concerns at this time.
--- NOTE | 2019-12-20 08:48 | PCM.OPNOTE ---
- General Post-Op/Procedure Note Date of Surgery/Procedure: 12/20/19 Operative Procedure(s): Repeat lower uterine segment transverse section through Pfannenstiel skin incision Findings: Uterus tubes and ovaries consistent with term . Amniotic fluid was clear. Baby in vertex presentation. Nuchal cord 1. Baby was female. Born at 0806 hrs. on 12/20/2019. Apgars 8 and 9. Weight 6 lbs. 12 oz. Pre Op Diagnosis: 1. 39+ week . 2. History of previous section. Post-Op Diagnosis: Same Primary Surgeon: Lev Caballero Secondary Surgeon: Shahab Anthony Anesthesia Provider: Nathan Borrego Reason Electric Distribution Engineer Was Necessary: Assistance, retraction, patient safety, quality of care. Fluid Replacement, Intraop: 1,100 Output, Urine Amount: 100 EBL in mLs: 460 Drain/Tube Comments:: Indwelling bladder catheter Complications: None Condition: Good Free Text/Narrative:: Surgery duration: 26 minutes Surgery duration: Procedure: The patient is appropriately consented. Patient was transferred to the room and placed in a sitting position. Spinal anesthesia was administered. After confirmation of adequate anesthesia patient was placed in a supine position with a wedge under her right side to facilitate left lateral positioning. The patient was prepped and draped in usual fashion after Perkins catheter was already placed . The anesthetic was checked and found to be adequate. 20 mL of Marcaine 0.5% was injected locally in the Pfannenstiel incision site. The Pfannenstiel skin incision was then made and carried down through skin, subcutaneous and fascial layers. The fascia was then undermined superiorly and inferiorly to allow for adequate operating room. The recti muscles midline and preperitoneal fat was bluntly dissected. Peritoneal cavity was entered longitudinally. The vesicouterine peritoneum was then incised transversely and bladder flap was developed. Myometrium was incised transversely to the level of the amniotic sac. This incision was extended bilaterally in a blunt fashion. The amniotic sac was then ruptured resulting in clear amniotic fluid. A hand is placed in the low uterine segment and the baby's head was brought forth through the incision. The baby was completely delivered using fundal pressure in a routine fashion. The nose and mouth were bulb suctioned. Baby's cord was clamped x2 cut and baby was handed off to attending grocery clerk selling Dr Malagon. Placenta was expressed after cord blood was obtained. Uterus was then exteriorized to allow for easier closure. The cervix was assessed and found to be dilated adequately to allow egress of blood. The uterus was closed in 2 layers. The first layer a running locked suture of 0 Monocryl, the second layer a running locked vertical mattress suture of 0 Monocryl. [id number]-rw-stsmo suture was placed at mid incision to control 1 bleeder. Hemostasis confirmed at this time. Sponge instrument needle counts are correct. The uterus was returned to the abdominal cavity and lateral gutters were cleared of blood. Once again sponge needle counts are correct. The anterior abdominal wall was closed with a #1 PDS suture from angle to angle. The subcutaneous area was found to be free of any bleeders. 3 interrupted sutures of 3-0 Monocryl were used to reapproximate the subcutaneous layer.Skin was closed with a running subcuticular stitch of 3-0 Monocryl in a vertical mattress suture fashion using a Lance needle. Prineo mesh/glue was then applied to further approximate the incision. It should be noted that patient received 2 g of Ancef preoperatively for infection prophylaxis and had Pitocin infused after delivery of the placenta to facilitate uterine contraction. She also had sequential compression stockings in place for DVT prophylaxis. Patient was discharged from the operating room in satisfactory condition.
[2019-12-20] MEDS: Nalbuphine 10 MG/ML Syringe IVPUSH PRN ×3 (09:08→09:40)
[2019-12-20] MEDS ORDERED: Naloxone 0.4 MG/ML SDV IVPUSH PRN (09:13)
[2019-12-20] MEDS ORDERED: Ibuprofen 800 MG Tab PO SCH (09:13)
[2019-12-20] MEDS ORDERED: Ondansetron 4 MG/2 ML SDV IV PRN (09:13)
[2019-12-20] MEDS ORDERED: Dextrose 5%-Lactated Ringers 1,000 ML IV SCH (09:13)
[2019-12-20] MEDS ORDERED: ePHEDrine 50 MG/ML SDV IVPUSH PRN (09:13)
[2019-12-20] MEDS ORDERED: Acetaminophen/oxyCODONE 325-5 MG Tab PO PRN (09:13)
[2019-12-20] MEDS: Simethicone 80 MG Tab.Chew PO SCH ×4 (12:54→21:37)
[2019-12-20] MEDS: Prenatal Multivitamin with Calcium/Folic Acid/Iron Tab PO SCH (12:55)
[2019-12-20] MEDS: Ibuprofen 800 MG Tab PO SCH ×2 (13:57→21:36)
[2019-12-20] MEDS: Acetaminophen/oxyCODONE 325-5 MG Tab PO PRN (19:36)
[2019-12-21] MEDS: Acetaminophen/oxyCODONE 325-5 MG Tab PO PRN ×5 (00:23→20:11)
[2019-12-21] MEDS: Ibuprofen 800 MG Tab PO SCH ×3 (05:57→21:55)
[2019-12-21] MEDS: Simethicone 80 MG Tab.Chew PO SCH ×4 (08:13→22:52)
[2019-12-21] MEDS: Prenatal Multivitamin with Calcium/Folic Acid/Iron Tab PO SCH (08:13)
--- NOTE | 2019-12-21 09:30 | PCM.SN.2 ---
- Free Text/Narrative Note: note: Postoperative day #1 Patient is doing well in the period. Minimal lochia, voiding well, ambulated without problems. Nursing without concerns. Patient is voiding well. She is passing gas and generally feels fine. Pain is under good control with ibuprofen and Percocet. Patient is afebrile, vital signs are stable Lungs are clear with good breath sounds in all lung wilder. Abdomen is flat, soft, uterus is below the umbilicus and is firm and nontender. Incision appears intact, dry. Prineo mesh is intact and dry. Legs are nontender. Assessment: /postoperative day #1- recovery going well. Plan: Routine care. Patient be discharged home within the next 24-48 hours.
[2019-12-21] MEDS: Docusate Sodium 100 MG Cap PO PRN (20:10)
[2019-12-22] MEDS: Acetaminophen/oxyCODONE 325-5 MG Tab PO PRN ×3 (02:42→13:12)
[2019-12-22] MEDS: Ibuprofen 800 MG Tab PO SCH ×2 (06:09→13:32)
[2019-12-22] MEDS: Docusate Sodium 100 MG Cap PO PRN (06:58)
--- NOTE | 2019-12-22 07:44 | PCM.DCSUM1 ---
Discharge Summary - Hospital Course Free Text/Narrative:: Naomy is a 34-year-old female admitted for elective repeat section on 12/20/2019. Please see admission history and physical for details concerning H&P. She underwent a repeat lower uterine segment transverse section through Rashawn skin incision under spinal block area please see operative report for details. She delivered a viable, tolentino, female infant at 0806 hrs. on 12/20/2019. Apgars were 8 and 9. Weight was 6 lbs. 12 oz. She's had an unremarkable recovery. She is made good bowel, bladder and ambulatory recovery. She is nursing without problems, has minimal lochia, is voiding without concerns and is desiring discharge home. Her vital signs stable throughout the course. Her hemoglobin is reduced due to fluid hydration and loss of blood type surgery. This however is manageable and patient is doing well with this. Discharge condition: Good Diagnosis: Stroke: No - Discharge Data Discharge Date: 12/22/19 Discharge Disposition: Home, Self-Care 01 Condition: Good - Referral to Home Health Primary Care Physician: Lev Caballero MD - Patient Summary/Data Operative Procedure(s) Performed: Repeat lower uterine segment transverse section through Pfannenstiel skin incision - Patient Instructions Diet: Regular Diet as Tolerated (Nursing diet was increased calories and calcium as recommended) Activity: As Tolerated (No lifting greater than 15 pounds or driving a car 1 week. No intercourse or tampons until bleeding resolves.) Driving: Do Not Drive Showering/Bathing: May Shower Wound/Incision Care: Keep Operative Site/Wound Site Clean and Dry (May take a bath after 1 week from the time of surgery.) Notify Provider of: Fever, Increased Pain, Swelling and Redness, Nausea and/or Vomiting - Discharge Plan Home Medications: Home Meds Ferrous Sulfate [Iron] 1 tab PO DAILY 04/21/17 [History] Vits #93/Iron Fum/FA [ Formula Tablet] 1 each PO DAILY [History] Calcium Carbonate [Calcium] 500 mg PO DAILY 12/18/19 [History] Acetaminophen/oxyCODONE [Percocet 325-5 MG] 1 tab PO Q4H PRN tablet 12/22/19 [ Rx] Ibuprofen [Motrin] 800 mg PO Q8H tablet 12/22/19 [Rx] Referrals: Lev Caballero MD [Primary Care Provider] - (Return to clinic[facility] weeks.) - Discharge Summary/Plan Comment DC Time >30 min.: No Discharge Summary/Plan Comment: Discharge instructions: 1. Discharge home 2. Diet, activity and follow-up discussed with patient. Recommend nursing diet with increased calories and calcium. 3. Precautions given concern increased pain, bleeding, temperature, signs/ symptoms of DVT/PE. 4. Medications per home medication was printed, discussed with and given to the patient. 5. Return to clinic-Dr. Caballero[facility] in 2 weeks. Diagnosis: Term -delivered Condition: Good - Patient Data Vitals - Most Recent: Last Vital Signs Temp 36.4 C 12/22/19 03:26 Pulse 76 12/22/19 03:26 Resp 14 12/22/19 03:26 BP 92/48 L 12/22/19 03:26 Pulse Ox 96 12/22/19 03:26 Weight - Most Recent: 77.337 kg I&O - Last 24 hours: Intake & Output 12/21/19 12/22/19 12/22/19 22:59 06:59 14:59 Intake Total 180 Output Total 2000 Balance -1820 Med Orders - Current: Current Medications Diphenhydramine HCl (Benadryl) 25 mg IVPUSH Q6H PRN PRN Reason: Itching or Nausea Docusate Sodium (Colace) 100 mg PO Q12H PRN PRN Reason: Constipation Last Admin: 12/22/19 06:58 Dose: 100 mg Ephedrine Sulfate (Ephedrine Sulfate) 5 mg IVPUSH SEECOMMENT PRN PRN Reason: Other Ibuprofen (Motrin) 800 mg PO Q8H KIRSTIN Last Admin: 12/22/19 06:09 Dose: 800 mg Nalbuphine HCl (Nubain) 2 mg IVPUSH ASDIRECTED PRN PRN Reason: Itching Last Admin: 12/20/19 09:40 Dose: 2 mg Naloxone HCl (Narcan) 0.1 mg IVPUSH SEECOMMENT PRN PRN Reason: Respiratory Depression Ondansetron HCl (Zofran) 4 mg IV Q4H PRN PRN Reason: Nausea/Vomiting Last Admin: 12/20/19 09:17 Dose: 4 mg Oxycodone/Acetaminophen (Percocet 325-5 Mg) 2 tab PO Q4H PRN PRN Reason: Pain (severe 7-10) Last Admin: 12/22/19 02:42 Dose: 2 tab Oxycodone/Acetaminophen (Percocet 325-5 Mg) 1 tab PO Q4H PRN PRN Reason: Pain (moderate 4-6) Last Admin: 12/20/19 12:54 Dose: 1 tab Prenat Multivit/[employer]/Iron/Folic Ac ( Plus Iron) 1 each PO DAILY [facility] Last Admin: 12/21/19 08:13 Dose: 1 each Simethicone (Simethicone) 80 mg PO PCBED [facility] Last Admin: 12/21/19 22:52 Dose: 80 mg Discontinued Medications Bupivacaine HCl (Marcaine 0.5%) Confirm Administered Dose 30 ml .ROUTE .STK-MED ONE Stop: 12/20/19 07:03 Last Admin: 12/20/19 08:03 Dose: 20 ml Cefazolin Sodium (Ancef) Confirm Administered Dose 2 gm .ROUTE .STK-MED ONE Stop: 12/20/19 07:37 Citric Acid/Sodium Citrate (Bicitra Solution) 30 ml PO ONETIME ONE Stop: 12/20/19 06:01 Last Admin: 12/20/19 06:57 Dose: 30 ml Diphenhydramine HCl (Benadryl) 25 mg IVPUSH Q6H PRN PRN Reason: Pruritis Famotidine (Pepcid) 20 mg IVPUSH ONETIME ONE Stop: 12/20/19 07:06 Fentanyl (Sublimaze) 50 mcg IVPUSH Q5M PRN PRN Reason: Pain Fentanyl (Sublimaze) Confirm Administered Dose 100 mcg .ROUTE .STK-MED ONE Stop: 12/20/19 07:12 Cefazolin Sodium/Dextrose 2 gm (/ Premix) 50 mls @ 100 mls/hr IV ONETIME ONE Stop: 12/20/19 06:29 Lactated Ringer's (Ringers, Lactated) 1,000 mls @ 125 mls/hr IV ASDIRECTED [facility] Last Admin: 12/20/19 06:30 Dose: 125 mls/hr Oxytocin/Lactated Ringer's (Pitocin In Lr 20 Units/1,000 Ml) 20 unit in 1,000 mls @ 500 mls/hr IV TITRATE KIRSTIN; Protocol Lactated Ringer's (Ringers, Lactated) 1,000 mls @ 125 mls/hr IV ASDIRECTED KIRSTIN Dextrose/Lactated Ringer's (Dextrose 5%-Lactated Ringers) 1,000 mls @ 125 mls/ hr IV ASDIRECTED KIRSTIN Stop: 12/20/19 17:12 Last Admin: 12/20/19 13:59 Dose: 125 mls/hr Ibuprofen (Motrin) 800 mg PO Q8H [facility] Ketorolac Tromethamine (Toradol) Confirm Administered Dose 30 mg .ROUTE .STK- MED ONE Stop: 12/20/19 07:37 Lidocaine/Sodium Bicarbonate (Buffered Lidocaine 1% In Ns 8.4%) 0.25 ml IDERM ONETIME PRN PRN Reason: Prior to IV Start Metoclopramide HCl (Reglan) 10 mg IVPUSH ONETIME ONE Stop: 12/20/19 06:01 Last Admin: 12/20/19 06:58 Dose: 10 mg Morphine Sulfate (Duramorph Pf) Confirm Administered Dose 1 mg .ROUTE .STK-MED ONE Stop: 12/20/19 07:11 Ondansetron HCl (Zofran) 4 mg IVPUSH ONETIME PRN PRN Reason: Nausea/Vomiting Oxytocin (Pitocin) Confirm Administered Dose 20 unit .ROUTE .STK-MED ONE Stop: 12/20/19 07:10 Oxytocin (Pitocin) Confirm Administered Dose 10 unit .ROUTE .STK-MED ONE Stop: 12/20/19 08:28 Sodium Chloride (Saline Flush) 10 ml FLUSH ASDIRECTED PRN PRN Reason: Keep Vein Open Sodium Chloride (Saline Flush) 10 ml FLUSH ASDIRECTED PRN PRN Reason: Keep Vein Open
[2019-12-22] MEDS: Prenatal Multivitamin with Calcium/Folic Acid/Iron Tab PO SCH (08:05)
[2019-12-22] MEDS: Simethicone 80 MG Tab.Chew PO SCH ×2 (08:07→13:12)
[2019-12-22 09:19] VITALS: BP 107/43; PULSE 75
--- NOTE | 2019-12-22 11:48 | PCM48HPAN ---
Post Anesthesia Note - EVALUATION WITHIN 48HRS OF ANESTHETIC Vital Signs in Normal Range: Yes Patient Participated in Evaluation: Yes Respiratory Function Stable: Yes Airway Patent: Yes Cardiovascular Function Stable: Yes Hydration Status Stable: Yes Pain Control Satisfactory: Yes Nausea and Vomiting Control Satisfactory: Yes Mental Status Recovered: Yes Vital Signs: Last Vital Signs Temp 36.7 C 12/22/19 09:10 Pulse 75 12/22/19 09:09 Resp 14 12/22/19 03:26 BP 107/43 L 12/22/19 09:09 Pulse Ox 98 12/22/19 09:09 - COMMENTS/OBSERVATIONS Free Text/Narrative:: Routine post-operative recovery after repeat . No concerns at this time.
== END 2019-12-22 14:40 | disposition home or self-care (01) | DRG 540 ==
LOC: JD.OB 05:33
PROVIDERS: ADMIT Obstetrics & Gynecology; ATTEND Obstetrics & Gynecology
PROC: 10D00Z1 Extraction of Products of Conception, Low, Open Approach (ICD-10-PCS; principal; 2019-12-20)
DX: O34.211 Maternal care for low transverse scar from previous cesarean delivery (principal); Z37.0 Single live birth; Z3A.39 39 weeks gestation of pregnancy
CPT/HCPCS: 01961; 36415; 59025; 85025; 86592; 86850; 86900; 86901; 94762; A9270-GY; J0690; J1885; J2274; J2300; J2405; J2590; J2765; J3010; J3490; J7120; J7121